=== PATIENT | female | born 1990 | race Two or more races ===

== ENCOUNTER 2022-01-28 13:26 | Emergency (ER) | payer MEDICAID, OTHER ==
[2022-01-28] MEDS ORDERED: AMMONIA 0.33 ML INHALANT IN ONE (13:41)
[2022-01-28 13:45] VITALS: BP 136/84
[2022-01-28] MEDS ORDERED: LORazepam 2MG/ML-1ML VIAL IV ONE (13:45)
[2022-01-28 13:58] LABS: Hematocrit 29.6 % (36.0-46.0); Mean Corpuscular Volume 64.7 fL (80.0-100.0); Nucleated Red Blood Cells % 0.1 %
[2022-01-28 14:00] LABS: Basophils # (auto) 0.1 10 ^3/uL (0-0.2); Basophils % (auto) 1.6 % (0.0-2.0); Eosinophils # (auto) 0.1 10 ^3/uL (0-0.8); Eosinophils % (auto) 1.1 % (0.0-7.0); Hemoglobin 9.3 g/dL (12.2-16.2); Lymphocytes # (auto) 1.7 10 ^3/uL (0.4-5.4); Lymphocytes % (auto) 23.4 % (10.0-50.0); Mean Corpuscular Hemoglobin 20.4 pg (28.0-32.0); Mean Corpuscular Hgb Conc. 31.5 g/dL (32.0-36.0); Monocytes # (auto) 0.5 10 ^3/uL (0-1.3); Monocytes % (auto) 6.7 % (0.0-12.0); Neutrophils # (auto) 4.8 10 ^3/uL (1.6-8.6); Neutrophils % (auto) 67.2 % (37.0-80.0); Red Blood Cells 4.58 10^6/uL (4.0-5.20); White Blood Cell 7.2 10^3/uL (4.4-10.8)
[2022-01-28 14:10] LABS: Red Cell Distribution Width 21.6 % (11.8-14.3)
[2022-01-28 14:12] LABS: Albumin 4.1 g/dL (3.4-5.0); BUN/Creatinine Ratio 13.5
[2022-01-28 14:15] LABS: Bilirubin, Total 0.3 mg/dL (0.2-1.0); Total Protein 7.7 g/dL (6.4-8.2)
== END 2022-01-28 14:40 | disposition left against medical advice (07) ==
LOC: ER 13:26 → EDBD 13:26 → ER 14:40
DX: F41.9 Anxiety disorder, unspecified (principal); F32.9 Major depressive disorder, single episode, unspecified; F17.210 Nicotine dependence, cigarettes, uncomplicated; F12.10 Cannabis abuse, uncomplicated
CPT/HCPCS: 36415; 80053; 84702; 85025